=== PATIENT | female | born 1935 | race Caucasian/White ===

== ENCOUNTER → 2017-06-04 | Outpatient (CLI) | payer MEDICARE | END | disposition home or self-care (01) | LOC: PCVCCLINIC 14:24 | DX: I48.91 Unspecified atrial fibrillation (principal); I35.0 Nonrheumatic aortic (valve) stenosis; I10 Essential (primary) hypertension; R60.9 Edema, unspecified; R94.31 Abnormal electrocardiogram [ECG] [EKG]; Z79.82 Long term (current) use of aspirin; Z79.899 Other long term (current) drug therapy; Z79.01 Long term (current) use of anticoagulants; Z87.891 Personal history of nicotine dependence | CPT/HCPCS: 93005; G0463 ==

== ENCOUNTER → 2017-12-02 | Outpatient (CLI) | payer MEDICARE ==
[~2017-12-02] MED LIST: REGADENOSON 0.4 MG/5 ML DISP.SYRIN. IV ONE
--- NOTE | 2017-12-02 12:20 | PCVCIMAG ---
APPROVED REPORT Imaging Protocol: Rest Tc-99m/Stress Tc-99m 1 day Study performed: 12/02/2017 10:00:35 Indication: Afib, CAD Patient Location: Out-Patient Stress Nurse: Pham Leslie RN NM Tech:Elieser Kilgore NMLEAB Ht: 5 ft 2 in Wt: 154 lbs BSA: 1.71 m2 HR: 105 bpm BP: 175/79 mmHg BMI: 28.16 Rhythm: Afib, PVC's Medical History Medical History: Age, Hyperlipidemia, HTN, PVD, CAD, Afib, Aortic Valve Stenosis, Former Smoker Medications: ASA, Atorvastatin, Diltiazem, Lisinopril, Metoprolol, Warfarin, Torsemide Allergies: Multiple allergies, none r/t test Previous Cardiac Procedures: PCI Exercise History: Sedentary Physical Disabilities: Hips, uses a cane Meds Held (24 hrs): Metoprolol Resting Data Rest SPECT myocardial perfusion imaging was performed in supine position 45 minutes following the intravenous injection of 11.1 mCi of Tc-99m Sestamibi. Time of rest injection: 914 Date: 12/02/2017 Administration Route: IV Administration Site: Right Wrist Pharmacologic Stress Pharmacologic stress test was performed by injecting Regadenoson 0.4 mg IV push over 10-15 seconds immediately followed by the intravenous injection of 31.8 mCi of Tc-99m Sestamibi. Time of stress injection: 5 Date: 12/02/2017 Administration Route: IV Administration Site: Right Wrist Gated Stress SPECT was performed 45 minutes after stress injection. The images were gated to evaluate regional wall motion and calculate left ventricular ejection fraction. Stress Test Details Stress Test: Pharmacologic stress testing performed using 0.4 mg of regadenoson per 5 mL given IV over 10 seconds. Reason for pharmacologic stress test: Knees, Hips, Uses cane. HRMax Heart Rate (APMHR): 139 bpm Resting HR: 105 bpmTarget HR (85% APMHR): 118 bpm Max HR Achieved: 126 bpm % of APMHR: 90 Recovery HR: 115 bpm BP Resting BP: 175/79 mmHg Recovery BP: 162/71 mmHg ECG Resting ECG: Atrial Fibrillation, Multifocal PVCs Stress ECG: Atrial Fibrillation RVR, Multifocal PVCs ST Change: Non-ischemic Arrhythmia: PVC's Recovery ECG: Atrial Fibrillation, Multifocal PVCs Clinical Reason for Termination: Completed protocol Stress Symptoms: Headache Exercise duration: min 55 sec Symptoms resolved with caffeine. Study Quality Study: Good Study Data Post stress, the left ventricular ejection was 78%.. SSS: 0 SRS: 0 SDS: 0 TID = 0.91. Perfusion Normal left ventricular perfusion. Normal perfusion on both the stress and rest images. Wall Motion Normal left ventricular wall motion. Nuclear Conclusion ECG Findings: negative for ischemia Clinical Findings: non-diagnostic Nuclear Findings: negative for ischemia Exercise Capacity: not assessed Left Ventricular Function: normal Risk Study: low This study is of low probability for inducible ischemia or prior infarct. Normal global and segmental LV systolic function.
== END | disposition home or self-care (01) ==
LOC: PCVCIMAG 08:45
PROVIDERS: ATTEND Internal Medicine Cardiovascular Disease
DX: I48.91 Unspecified atrial fibrillation (principal); I25.10 Atherosclerotic heart disease of native coronary artery without angina pectoris; E78.5 Hyperlipidemia, unspecified; I10 Essential (primary) hypertension; I73.9 Peripheral vascular disease, unspecified; I34.0 Nonrheumatic mitral (valve) insufficiency; R60.9 Edema, unspecified; Z79.82 Long term (current) use of aspirin; Z87.891 Personal history of nicotine dependence; Z79.899 Other long term (current) drug therapy
CPT/HCPCS: 36415; 78452; 93005; 93017; A9500; G0463; J2785

== ENCOUNTER → 2018-05-06 | Outpatient (CLI) | payer MEDICARE | END | disposition home or self-care (01) | LOC: PCVCCLINIC 14:07 | PROVIDERS: ATTEND Internal Medicine Cardiovascular Disease | DX: I25.10 Atherosclerotic heart disease of native coronary artery without angina pectoris (principal); I48.91 Unspecified atrial fibrillation; I11.0 Hypertensive heart disease with heart failure; I50.32 Chronic diastolic (congestive) heart failure; E78.00 Pure hypercholesterolemia, unspecified; Z79.82 Long term (current) use of aspirin; Z87.891 Personal history of nicotine dependence | CPT/HCPCS: 36415; 93005; G0463 ==